=== PATIENT | female | born 1940 | race Hispanic/Latino ===

== ENCOUNTER 2018-01-16 14:06 | Emergency (ER) | payer MEDICARE ==
[2018-01-16 14:20] VITALS: BMI 41.8
[2018-01-16 14:21] VITALS: RESP 18; TEMP 98.5
[2018-01-16] MEDS ORDERED: Lidocaine 5% Patch TD STA (14:56)
--- NOTE | 2018-01-16 15:08 | ED PDOC ---
Arrival/HPI - General Chief Complaint: Upper Extremity Problem/Injury Time Seen by Provider: 01/16/18 14:56 Historian: Patient - History of Present Illness Narrative History of Present Illness (Text): 01/16/18 15:03 A 77 year old female, whose past medical history includes diabetes, hypertension, neuropathy, and CHF, presents to the emergency department complaining of left shoulder pain since last night. Patient reports pain r adiates from her left shoulder to her left hand and fingers. Patient states she took some tylenol for pain to no relief last night. Patient reports her pain improved this morning. Patient notes she had rotator cuff surgery to her left shoulder [address] Smith and has not followed up. Patient denies any fever, chills, numbness, weakness, palpitations, syncope, shortness of breath, chest pain, diarrhea, nausea, vomiting, urinary symptoms, back pain, neck pain, headache, dizziness, or any other complaints. PMD: Dr. Markham Orthepedic: Dr. Smith Time/Duration: Other (last night) Symptom Onset: Gradual Symptom Course: Unchanged Activities at Onset: Light Context: Home Past Medical History - Provider Review Nursing Documentation Reviewed: Yes - Infectious Disease Hx of Infectious Diseases: None - Tetanus Immunization Tetanus Immunization: Unknown - Cardiac Hx Cardiac Disorders: Yes Hx Congestive Heart Failure: Yes - Pulmonary Hx Respiratory Disorders: Yes Hx Pneumonia: Yes - Neurological Hx Neurological Disorder: Yes Hx Transient Ischemic Attacks (TIA): Yes Other/Comment: mini-stroke - HEENT Hx HEENT Disorder: Yes Hx Cataracts: Yes Hx Macular Degeneration: Yes - Renal Hx Renal Disorder: No - Endocrine/Metabolic Hx Endocrine Disorders: Yes Hx Diabetes Mellitus Type 2: Yes - Hematological/Oncological Hx Blood Disorders: No - Integumentary Hx Dermatological Disorder: No - Musculoskeletal/Rheumatological Hx Musculoskeletal Disorders: Yes Hx Arthritis: Yes - Gastrointestinal Hx Gastrointestinal Disorders: Yes Hx Gastroesophageal Reflux: Yes - Genitourinary/Gynecological Hx Genitourinary Disorders: No - Psychiatric Hx Psychophysiologic Disorder: No Hx Substance Use: No - Surgical History Hx Appendectomy: Yes Hx Coronary Stent: Yes Hx Gastric Bypass Surgery: Yes Hx Musculoskeletal Surgery: Yes (left rotator cuff repair) Hx Orthopedic Surgery: Yes - Suicidal Assessment Feels Threatened In Home Enviroment: No Family/Social History - Physician Review Nursing Documentation Reviewed: Yes Family/Social History: Unknown Family HX Smoking Status: Never Smoked Hx Alcohol Use: No Hx Substance Use: No Hx Substance Use Treatment: No Allergies/Home Meds Allergies/Adverse Reactions: Allergies No Known Allergies Allergy (Verified 01/16/18 14:21) Home Medications: Home Meds Medication Instructions Recorded Confirmed Gabapentin 400 mg PO TID 01/29/12 04/15/16 Gemfibrozil 600 mg PO BID 01/29/12 04/15/16 Insulin Aspart Mix [novolog Mix 30 units SC AC 01/29/12 04/15/16 70/30] Insulin Aspart Mix [novolog Mix 20 units SC HS 06/27/14 04/15/16 70/30 70 U/Ml-30 U/Ml 3 Ml] Review of Systems - Physician Review All systems were reviewed & negative as marked: Yes - Review of Systems Constitutional: absent: Fevers, Night Sweats Respiratory: absent: SOB Cardiovascular: absent: Chest Pain, Palpitations Gastrointestinal: absent: Diarrhea, Nausea, Vomiting Genitourinary Female: absent: Urine Output Changes Musculoskeletal: Other (+left shoulder pain radiating to hand and fingers). absent: Back Pain, Neck Pain Neurological: absent: Headache, Dizziness, Focal Weakness, Other (no numbness) Physical Exam Vital Signs Reviewed: Yes Vital Signs Temp Pulse Resp BP Pulse Ox 01/16/18 14:20 98.5 F 80 18 141/90 96 Temperature: Afebrile Blood Pressure: Normal Pulse: Regular Respiratory Rate: Normal Appearance: Positive for: Well-Appearing, Non-Toxic, Comfortable Pain Distress: None Mental Status: Positive for: Alert and Oriented X 3 - Systems Exam Head: Present: Atraumatic, Normocephalic Pupils: Present: PERRL Extroacular Muscles: Present: EOMI Conjunctiva: Present: Normal Mouth: Present: Moist Mucous Membranes Neck: Present: Normal Range of Motion. No: Meningeal Signs, MIDLINE TENDERNESS, Lymphadenopathy Respiratory/Chest: Present: Clear to Auscultation, Good Air Exchange. No: Respiratory Distress, Accessory Muscle Use Cardiovascular: Present: Regular Rate and Rhythm, Normal S1, S2. No: Murmurs Abdomen: No: Tenderness, Distention, Peritoneal Signs Back: Present: Normal Inspection Upper Extremity: Present: Normal Inspection, Normal ROM, NORMAL PULSES, Neurovascularly Intact, Capillary Refill < 2s, Norm 2-Pt Discrimination. No: Cyanosis, Edema, Tenderness, Swelling, Erythema, Temperature Abnormalties, Deformity Lower Extremity: Present: Normal Inspection, NORMAL PULSES, Normal ROM, Neurovascularly Intact, Capillary Refill < 2 s. No: Edema, Tenderness, Swelling, Temperature Abnormalties Neurological: Present: GCS=15, CN II-XII Intact, Speech Normal, Motor Func Grossly Intact, Normal Sensory Function Skin: Present: Warm, Dry, Normal Color. No: Rashes Psychiatric: Present: Alert, Oriented x 3, Normal Insight, Normal Concentration Medical Decision Making ED Course and Treatment: 01/16/18 15:10 Impression: 77 year old female presenting to the emergency room complaining of left shoulder pain. Plan: -- EKG -- Lidocaine patch -- Reassess and disposition -- IV -- FS -- senior qc technician -- Labs -- CXR Prior Visits: Notes and results from previous visits were reviewed : patient had a stress test on 04/15/16 which was negative and an echo which revealed normal LV size, normal LV EF, mild pulm HTN, and mild concentric LV hypertrophy. Progress Notes: 01/16/18 15:10 Patient states she is due to see her orthopedic doctor, Dr. Smith, to get injections for both knees. CXR : NAD. EKG : NSR at 78 bpm, LAD, no acute ST changes. FS : 56 Patient given juice and food to eat. Labs reviewed : trop (-), BNP 701. On reevaluation, patient reports improvement of symptoms, denies any CP, SOB, dyspnea, dizziness or L arm pain. On exam, patient remains awake alert and oriented 3 in no acute distress. Diagnostic results d/w the patient. Based on history, exam and diagnostic results plan will be for outpatient follow up. Advised to follow up with primary care physician and orthopedist in 1-2 days without fail. Advised to take medication as prescribed. Return to the emergency room at any time for any new or worsening symptoms. Patient states she fully agrees with and understands discharge instructions. States that she agrees with the plan and disposition. Verbalized and repeated discharge instructions and plan. I have given the patient opportunity to ask any additional questions. - Medication Orders Current Medication Orders: Discontinued Medications Lidocaine (Lidoderm) 1 ea TD STAT STA Stop: 01/16/18 14:57 - PA / TRADE SHOW COORDINATOR / Resident Statement MD/DO has reviewed & agrees with the documentation as recorded. - Scribe Statement The provider has reviewed the documentation as recorded by the Lisaibeleazar Bradford All medical record entries made by the Scribe were at my direction and personally dictated by me. I have reviewed the chart and agree that the record accurately reflects my personal performance of the history, physical exam, medical decision making, and the department course for this patient. I have also personally directed, reviewed, and agree with the discharge instructions and disposition. Disposition/Present on Arrival - Present on Arrival Any Indicators Present on Arrival: No History of DVT/PE: No History of Uncontrolled Diabetes: No Urinary Catheter: No History of Decub. Ulcer: No History Surgical Site Infection Following: None - Disposition Have Diagnosis and Disposition been Completed?: Yes Diagnosis: Left arm pain Disposition: HOME/ ROUTINE Disposition Time: 17:30 Patient Plan: Discharge Patient Problems: Current Active Problems Problem Status Onset Left arm pain Acute Condition: STABLE Discharge Instructions (ExitCare): Muscle and Bone Pain (DC) Additional Instructions: Thank you for letting us take care of you today. You were treated for left arm pain. The emergency medical care you received today was directed at your acute symptoms. If you were prescribed any medication, please fill it and take as directed. It may take several days for your symptoms to resolve. Return to the Emergency Department if your symptoms worsen, do not improve, or if you have any other problems. Please contact your primary care and orthopedic doctor in 2 days for re-ev aluation and follow up. Bring any paperwork you were given at discharge with you along with any medications you are taking to your follow up visit. Our treatment cannot replace ongoing medical care by a primary care provider (PCP) outside of the emergency department. Thank you for allowing the [facility] team to be part of your care today. Prescriptions: Lidocaine 5% [Lidoderm] 1 ea TD Q12H PRN #20 patch PRN Reason: Pain, Moderate (4-7) Referrals: Alan Jacobsen MD [Staff Provider] - Follow up with primary Forms: [employer] (Mauritian)
--- NOTE | 2018-01-16 16:28 | RAD ---
Date of service: 01/16/2018 HISTORY: L arm pain COMPARISON: 07/03/2014. FINDINGS: LUNGS: No active pulmonary disease. PLEURA: No significant pleural effusion identified, no pneumothorax apparent. CARDIOVASCULAR: No atherosclerotic calcification present Cardiomegaly. No evidence of acute, significant cardiovascular disease. OSSEOUS STRUCTURES: No significant abnormalities. VISUALIZED UPPER ABDOMEN: Normal. OTHER FINDINGS: None. IMPRESSION: No active disease. No significant interval change compared to the prior examination(s).
[2018-01-16 17:00] LABS: BASO # 0.04 K/mm3 (0.0-2.0); BASO % 0.4 % (0.0-3.0); EOS # 0.3 (0.0-0.7); EOS % 3.1 % (1.5-5.0); GRAN # 5.95 (1.4-6.5); GRAN % 65.7 % (50.0-68.0); HEMOGLOBIN 11.6 g/dL (12.0-16.0); LYMPH # 2.4 (1.2-3.4); LYMPH % 26.5 % (22.0-35.0); MEAN CELL VOLUME 89.4 fl (80.0-105.0); MEAN CORPUSCULAR HGB CONC 33.5 g/dl (31.0-37.0); MEAN PLATELET VOLUME 10.7 fl (7.0-11.0); MONO # 0.4 (0.1-0.6); MONO % 4.3 % (1.0-6.0); RBC 3.87 10^6/uL (3.5-6.1); RED CELL DISTRIBUTION WIDTH 13.8 % (11.5-14.5); WHITE BLOOD COUNT 9.1 10^3/uL (4.5-11.0)
[2018-01-16 17:03] LABS: INR 1.01; PARTIAL THROMBOPLASTIN TIME 37.6 Seconds (25.1-36.5); PROTHROMBIN TIME 11.5 SECONDS (9.4-12.5)
[2018-01-16 17:07] LABS: ALB/GLOB RATIO 1.2 (1.1-1.8); ALBUMIN 3.9 g/dL (3.0-4.8); ALT/SGPT 18 U/L (7-56); AST/SGOT 38 U/L (14-36); BLOOD UREA NITROGEN 22 mg/dL (7-21); CALCIUM 9.3 mg/dL (8.4-10.5); GFR NON-AFRICAN AMERICAN 48
[2018-01-16 17:20] LABS: B-TYPE NATRIURETIC PEPTIDE 701 pg/mL (0-450); TROPONIN I < 0.01 ng/mL
[2018-01-16 18:01] VITALS: BP 144/70; PULSE 76; O2SAT 95
--- NOTE | 2018-01-17 10:16 | CARD ---
APPROVED REPORT Date of service: 01/16/2018 EKG Measurement Heart [id number] <Conclusion> Normal sinus rhythm Left axis deviation PRWP, possible due to lead positioning. Inferior infarct, age undetermined Anterolateral infarct, age undetermined NSSTW changes
== END 2018-01-16 18:43 | disposition home or self-care (01) ==
LOC: ED 14:06
DX: M79.602 Pain in left arm (principal); I11.0 Hypertensive heart disease with heart failure; I50.9 Heart failure, unspecified; E11.40 Type 2 diabetes mellitus with diabetic neuropathy, unspecified; Z86.73 Personal history of transient ischemic attack (TIA), and cerebral infarction without residual deficits; Z95.5 Presence of coronary angioplasty implant and graft